=== PATIENT | female | born 1980 | race African-American/Black ===

== ENCOUNTER 2023-08-05 19:04 | Emergency (ER) | payer BC, MEDICAID ==
[2023-08-05] MEDS ORDERED: cloNIDine 0.1 MG Tab PO ONE (22:30)
== END 2023-08-05 23:09 | disposition home or self-care (01) ==
LOC: DL.ED 19:04
DX: I16.0 Hypertensive urgency (principal); E66.2 Morbid (severe) obesity with alveolar hypoventilation; I10 Essential (primary) hypertension; Z88.2 Allergy status to sulfonamides; Z91.040 Latex allergy status; Z88.8 Allergy status to other drugs, medicaments and biological substances; Z68.41 Body mass index [BMI] 40.0-44.9, adult
CPT/HCPCS: 99283; 99284; A9270